=== PATIENT | male | born 1970 | race Caucasian/White ===

== ENCOUNTER 2019-11-30 20:28 | Inpatient (IN) ==
[2019-11-30] MEDS ORDERED: FUROSEMIDE 40 MG/4 ML VIAL IV STA (20:42)
[2019-11-30] MEDS ORDERED: FUROSEMIDE 100 MG/10 ML VIAL ONE (20:43)
[2019-11-30 20:44] LABS: ABG Base Excess -2.1 MMOL/L (-2.5-2.5); ABG HCO3 22.6 MMOL/L (20-26); ABG PCO2 29.9 MM HG (35-48); ABG PH 7.444 (7.35-7.45); ABG PO2 83.8 MM HG (80-95); ABG TCO2 16.9 MMOL/L (23-27)
[2019-11-30 20:49] LABS: Basophils # 0.2 10*3/uL (0.0-0.2); Basophils % 0.7 % (0.0-0.8); Eosinophils # 0.7 10*3/uL (0.0-0.87); Eosinophils % 2.9 % (0.00-10.9); Hematocrit 49.8 VOL% (42.0-52.0); Hemoglobin 16.8 GM/DL (14.0-18.0); Immature Granulocytes % 0.4 %; Lymphocytes # 9.9 10*3/uL (1.4-4.0); Lymphocytes % 40.5 % (21.2-54.2); Mean Corpuscular HGB Conc 33.7 GM/DL (32-36); Mean Corpuscular Volume 84.3 FL (87-102); Mean Platelet Volume 10.9 FL (9.6-12.0); Neutrophils % 49.5 % (38.7-73.9); Platelet Count 408 T/CUMM (130-400); Red Blood Count 5.91 MC/CUMM (3.8-5.5); Red Cell Distribution Width 13.6 % (9.3-17.3); White Blood Count 24.3 T/CUMM (4-12)
[2019-11-30 21:00] LABS: PT Patient Result 10.4 SECS (9.8-11.9)
[2019-11-30 21:03] LABS: Apearance,Urine CLEAR (Clear); Bacteria,Urine Occasional /HPF (Few); Bilirubin,Urine Negative (Negative); Blood, Urine Negative (Negative); Glucose,Urine (UA) Negative (Negative); Ketones,Urine Negative (Negative); Mucus,Urine Occasional /LPF (Occasional); Nitrite,Urine Negative (Negative); Protein,Urine 30 MG/DL; RBC,Urine 2 /HPF (0-4); Squamous Epithelial Cell,Urine Occasional /HPF (0-10); Urine Color Yellow (Yellow); Urine Specific Gravity 1.027 (1.001-1.035); Urine Urobilinogen < 2.0 EU/DL (0.2-1.0); WBC,Urine 1 /HPF (0-6)
[2019-11-30] MEDS ORDERED: ALBUTEROL/IPRATROPIUM 3 ML NEB RESP TX STA (21:08)
[2019-11-30 21:09] LABS: Barbiturates Screen,Urine Negative (Negative); Benzodiazepines Screen,Urine Negative (Negative); Cannabinoid Screen,Urine Negative (Negative); Opiate Screen,Urine Negative (Negative); Phencyclidine Screen,Urine Negative (Negative)
[2019-11-30 21:11] LABS: Band Neutrophils 1 % (0-10); Eosinophils 3 % (0-10); Lymphocytes 38 % (20-55); Segmented Neutrophils 49 % (50-85); Total Cells Counted 100
[2019-11-30 21:12] LABS: Platelet Estimate Adequate
[2019-11-30 21:13] LABS: Albumin 4.2 G/DL (3.4-5.0); Bilirubin,Total 0.5 MG/DL (0.2-1.0); Calcium 9.4 MG/DL (8.5-10.1); Total Protein 8.2 G/DL (6.4-8.3)
[2019-11-30 21:18] LABS: ABG Base Excess -6.5 MMOL/L (-2.5-2.5); ABG Oxygen Saturation 85.2 % (95-100); ABG PCO2 54.7 MM HG (35-48); ABG PH 7.222 (7.35-7.45); ABG PO2 59.3 MM HG (80-95); ABG TCO2 23.7 MMOL/L (23-27)
[2019-11-30] MEDS ORDERED: ROCURONIUM 100 MG/10 ML VIAL IV STA (21:24)
[2019-11-30] MEDS ORDERED: ETOMIDATE 20 MG/10 ML VIAL IV STA (21:24)
[2019-11-30 21:43] LABS: ABG Base Excess -12.7 MMOL/L (-2.5-2.5); ABG HCO3 14.9 MMOL/L (20-26); ABG Oxygen Saturation 94.9 % (95-100); ABG PCO2 65.7 MM HG (35-48); ABG TCO2 17.8 MMOL/L (23-27)
[2019-11-30] MEDS ORDERED: cefTRIAXone 1,000 MG in SODIUM CHLORIDE 0.9% 100 ML IV STA (21:47)
[2019-11-30] MEDS ORDERED: LEVOFLOXACIN INJ 500 MG in PREMIX 1 EACH IV STA (21:47)
[2019-11-30] MEDS ORDERED: PROMETHAZINE 25 MG/1 ML VIAL IM PRN (21:57)
[2019-11-30] MEDS ORDERED: ALBUTEROL 2.5 MG/3 ML NEB RESP TX PRN (21:57)
[2019-11-30] MEDS ORDERED: SODIUM BICARBONATE 50 MEQ/50 ML VIAL IV STA (22:09)
[2019-11-30] MEDS ORDERED: LORazepam 2 MG/1 ML VIAL ONE (23:09)
[2019-11-30 23:18] LABS: ABG Base Excess -4.9 MMOL/L (-2.5-2.5); ABG HCO3 20.5 MMOL/L (20-26); ABG PCO2 49.4 MM HG (35-48); ABG PH 7.274 (7.35-7.45); ABG TCO2 19.3 MMOL/L (23-27)
[2019-11-30] MEDS ORDERED: ATROPINE 1 MG/10 ML SYRINGE IV ONE (23:38)
[2019-11-30 23:51] LABS: Troponin I 0.018 NG/ML (0.00-0.045)
[2019-12-01] MEDS ORDERED: LORazepam 2 MG/1 ML VIAL IV STA (00:06)
[2019-12-01] MEDS ORDERED: LORazepam 2 MG/1 ML VIAL ONE (00:08)
[2019-12-01] MEDS ORDERED: FOSPHENYTOIN 1,000 MG.PE in SODIUM CHLORIDE 0.9% 250 ML IV ONE (00:30)
[2019-12-01] MEDS ORDERED: POTASSIUM CHLORIDE INJ 80 MEQ in SODIUM CHLORIDE 0.9% 1,000 ML IV SCH (00:30)
[2019-12-01] MEDS ORDERED: LACTATED RINGERS 1,000 ML IV SCH (00:30)
[2019-12-01] MEDS ORDERED: POTASSIUM CHLORIDE RIDER 20 MEQ in PREMIX 1 EACH IV SCH (00:30)
[2019-12-01] MEDS: LORazepam INJ 40 MG in DEXTROSE 5% 30 ML IV PRN ×4 (00:52→21:57)
[2019-12-01] MEDS ORDERED: LACTATED RINGERS 1,000 ML IV ONE ×2 (01:32→03:27)
[2019-12-01 01:48] LABS: ABG PCO2 43.7 MM HG (35-48)
[2019-12-01 01:49] LABS: ABG Base Excess -0.3 MMOL/L (-2.5-2.5); ABG HCO3 24.2 MMOL/L (20-26); ABG Oxygen Saturation 99.4 % (95-100); ABG TCO2 21.1 MMOL/L (23-27)
[2019-12-01 04:17] LABS: ABG Base Excess 1.9 MMOL/L (-2.5-2.5); ABG HCO3 26.1 MMOL/L (20-26); ABG Oxygen Saturation 99.7 % (95-100); ABG PCO2 32.9 MM HG (35-48); ABG PH 7.481 (7.35-7.45); ABG TCO2 20.5 MMOL/L (23-27)
[2019-12-01 06:22] LABS: Albumin 3.3 G/DL (3.4-5.0); Bilirubin,Total 0.5 MG/DL (0.2-1.0); Calcium 8.6 MG/DL (8.5-10.1); Osmolality,Calculated 293.8 MOS/KG (273-304); Total Protein 7.2 G/DL (6.4-8.3)
[2019-12-01] MEDS: MAGNESIUM SULF RIDER 4 GM in PREMIX 1 EACH IV PRN (08:38)
[2019-12-01] MEDS ORDERED: ATROPINE 1 MG/10 ML SYRINGE ONE ×2 (08:58→22:34)
[2019-12-01] MEDS ORDERED: ATROPINE 1 MG/10 ML SYRINGE IV ONE ×2 (08:58→14:48)
[2019-12-01] MEDS: cefTRIAXone 1,000 MG in SYRINGE 1 EACH IV SCH (11:02)
[2019-12-01] MEDS: PANTOPRAZOLE 40 MG VIAL IV SCH (11:02)
[2019-12-01] MEDS: ENOXAPARIN 40 MG/0.4 ML SYRINGE SUBCUT SCH (12:21)
[2019-12-01 12:31] LABS: Basophils % 0.2 % (0.0-0.8); Eosinophils % 0.1 % (0.00-10.9); Hematocrit 46.4 VOL% (42.0-52.0); Hemoglobin 15.6 GM/DL (14.0-18.0); Immature Granulocytes % 0.3 %; Immature Granulocytes Absolute 0.05 #; Lymphocytes % 5.2 % (21.2-54.2); Mean Corpuscular HGB Conc 33.6 GM/DL (32-36); Mean Corpuscular Volume 83.5 FL (87-102); Mean Platelet Volume 10.5 FL (9.6-12.0); Monocytes % 5.5 % (1.7-12.7); Neutrophils % 88.7 % (38.7-73.9); Platelet Count 269 T/CUMM (130-400); Red Blood Count 5.56 MC/CUMM (3.8-5.5); Red Cell Distribution Width 13.7 % (9.3-17.3); White Blood Count 19.9 T/CUMM (4-12)
[2019-12-01 17:19] LABS: Calcium 8.3 MG/DL (8.5-10.1); Osmolality,Calculated 298.4 MOS/KG (273-304)
[2019-12-01] MEDS: MAGNESIUM SULF RIDER 2 GM in PREMIX 1 EACH IV PRN (18:29)
[2019-12-01] MEDS ORDERED: LEVOFLOXACIN INJ 500 MG in PREMIX 1 EACH IV SCH (21:00)
[2019-12-01] MEDS: ATROPINE 1 MG/10 ML SYRINGE IV PRN (22:42)
[2019-12-02] MEDS: LORazepam INJ 40 MG in DEXTROSE 5% 30 ML IV PRN ×4 (00:17→14:55)
[2019-12-02] MEDS: ATROPINE 1 MG/10 ML SYRINGE IV PRN ×3 (02:33→09:12)
[2019-12-02] MEDS ORDERED: ATROPINE 1 MG/10 ML SYRINGE ONE ×2 (02:36→06:55)
[2019-12-02 04:43] LABS: Allen Test Positive; Pt O2 Delivery Device Ventilator
[2019-12-02 04:44] LABS: ABG Base Excess 2.6 MMOL/L (-2.5-2.5); ABG HCO3 26.8 MMOL/L (20-26); ABG Oxygen Saturation 99.2 % (95-100); ABG PCO2 39.3 MM HG (35-48); ABG PH 7.442 (7.35-7.45); ABG TCO2 22.9 MMOL/L (23-27)
[2019-12-02 04:45] LABS: Basophils % 0.2 % (0.0-0.8); Eosinophils % 0.2 % (0.00-10.9); Hematocrit 42.6 VOL% (42.0-52.0); Hemoglobin 14.2 GM/DL (14.0-18.0); Immature Granulocytes % 0.4 %; Immature Granulocytes Absolute 0.08 #; Lymphocytes # 1.4 10*3/uL (1.4-4.0); Lymphocytes % 7.6 % (21.2-54.2); Mean Corpuscular HGB Conc 33.3 GM/DL (32-36); Mean Corpuscular Volume 86.1 FL (87-102); Mean Platelet Volume 10.7 FL (9.6-12.0); Monocytes % 5.8 % (1.7-12.7); Neutrophils % 85.8 % (38.7-73.9); Platelet Count 230 T/CUMM (130-400); Red Blood Count 4.95 MC/CUMM (3.8-5.5); Red Cell Distribution Width 14.2 % (9.3-17.3); White Blood Count 18.1 T/CUMM (4-12)
[2019-12-02 05:07] LABS: Bilirubin,Total 0.6 MG/DL (0.2-1.0); Calcium 7.9 MG/DL (8.5-10.1); Osmolality,Calculated 300.3 MOS/KG (273-304); Total Protein 6.2 G/DL (6.4-8.3)
[2019-12-02 05:20] LABS: Hypochromasia Slight; Platelet Estimate Adequate
[2019-12-02] MEDS: PANTOPRAZOLE 40 MG VIAL IV SCH (09:25)
[2019-12-02] MEDS: cefTRIAXone 1,000 MG in SYRINGE 1 EACH IV SCH (09:25)
[2019-12-02] MEDS: ENOXAPARIN 40 MG/0.4 ML SYRINGE SUBCUT SCH (09:25)
[2019-12-02] MEDS: POTASSIUM CHLORIDE RIDER 20 MEQ in PREMIX 1 EACH IV PRN (09:26)
[2019-12-02] MEDS: POTASSIUM CHLORIDE RIDER 10 MEQ in PREMIX 1 EACH IV PRN (11:33)
[2019-12-02] MEDS: SODIUM CHLORIDE 0.9% IV SCH ×2 (11:47→15:23)
[2019-12-02] MEDS: ATROPINE IV PRN (11:47)
[2019-12-02] MEDS: SODIUM CHLORIDE 0.9% IV PRN (11:47)
[2019-12-02] MEDS: [UNRECOGNIZED DRUG - OTHER] IV SCH ×2 (11:47→15:23)
[2019-12-02] MEDS ORDERED: POTASSIUM CHLORIDE 20 MEQ/15 ML UDCUP PER TUBE ONE (12:00)
[2019-12-02] MEDS: DEXTROSE 5% NACL 0.45% 1,000 ML IV SCH (12:51)
[2019-12-02] MEDS ORDERED: LIDOCAINE 1% 20 ML VIAL ONE (13:18)
[2019-12-02] MEDS: VANCOMYCIN INJ 2,000 MG in SODIUM CHLORIDE 0.9% 500 ML IV SCH (15:38)
[2019-12-02] MEDS ORDERED: [UNRECOGNIZED DRUG - OTHER] IV SCH (16:00)
[2019-12-02] MEDS ORDERED: SODIUM CHLORIDE 0.9% IV SCH (16:00)
[2019-12-03] MEDS: DEXTROSE 5% NACL 0.45% 1,000 ML IV SCH ×2 (03:42→14:55)
[2019-12-03 04:51] LABS: ABG Base Excess 2.9 MMOL/L (-2.5-2.5); ABG Oxygen Saturation 99.3 % (95-100); ABG PCO2 41.8 MM HG (35-48); ABG PH 7.428 (7.35-7.45); Allen Test Positive; Pt O2 Delivery Device Ventilator
[2019-12-03] MEDS: VANCOMYCIN INJ 2,000 MG in SODIUM CHLORIDE 0.9% 500 ML IV SCH ×2 (05:22→14:40)
[2019-12-03 05:24] LABS: Basophils # 0.1 10*3/uL (0.0-0.2); Basophils % 0.3 % (0.0-0.8); Eosinophils # 0.1 10*3/uL (0.0-0.87); Eosinophils % 0.5 % (0.00-10.9); Hematocrit 38.3 VOL% (42.0-52.0); Hemoglobin 12.8 GM/DL (14.0-18.0); Immature Granulocytes % 0.3 %; Immature Granulocytes Absolute 0.04 #; Lymphocytes # 2.1 10*3/uL (1.4-4.0); Lymphocytes % 13.8 % (21.2-54.2); Mean Corpuscular HGB Conc 33.4 GM/DL (32-36); Mean Corpuscular Volume 86.3 FL (87-102); Mean Platelet Volume 10.2 FL (9.6-12.0); Monocytes % 7.4 % (1.7-12.7); Neutrophils % 77.7 % (38.7-73.9); Platelet Count 202 T/CUMM (130-400); Red Blood Count 4.44 MC/CUMM (3.8-5.5); Red Cell Distribution Width 14.4 % (9.3-17.3); White Blood Count 15.5 T/CUMM (4-12)
[2019-12-03 06:04] LABS: Albumin 2.5 G/DL (3.4-5.0); Calcium 7.9 MG/DL (8.5-10.1); Osmolality,Calculated 296.3 MOS/KG (273-304); Total Protein 6.1 G/DL (6.4-8.3)
[2019-12-03] MEDS: POTASSIUM CHLORIDE RIDER 20 MEQ in PREMIX 1 EACH IV PRN (07:10)
[2019-12-03] MEDS: cefTRIAXone 1,000 MG in SYRINGE 1 EACH IV SCH (08:05)
[2019-12-03] MEDS: MAGNESIUM SULF RIDER 2 GM in PREMIX 1 EACH IV PRN (08:05)
[2019-12-03] MEDS: ENOXAPARIN 40 MG/0.4 ML SYRINGE SUBCUT SCH (08:05)
[2019-12-03] MEDS: PANTOPRAZOLE 40 MG VIAL IV SCH (08:10)
[2019-12-03] MEDS ORDERED: DEXTROSE 10% 250 ML BAG IV PRN (13:28)
[2019-12-03] MEDS ORDERED: GLUCAGON 1 MG VIAL IM PRN (13:28)
[2019-12-03] MEDS: ATROPINE IV PRN (15:02)
[2019-12-03] MEDS: SODIUM CHLORIDE 0.9% IV PRN (15:02)
[2019-12-03] MEDS: INSULIN REGULAR 100 UNIT/ML SUBCUT SCH ×2 (18:25→23:50)
[2019-12-03] MEDS: ACETAMINOPHEN 325 MG/10.15 ML UDCUP PO PRN (22:47)
[2019-12-04 04:55] LABS: ABG Base Excess 1.5 MMOL/L (-2.5-2.5); ABG HCO3 26.1 MMOL/L (20-26); ABG Oxygen Saturation 98.5 % (95-100); ABG PCO2 41.1 MM HG (35-48); ABG PO2 163.3 MM HG (80-95); ABG TCO2 27.3 MMOL/L (23-27)
[2019-12-04 04:56] LABS: Allen Test Positive; Pt O2 Delivery Device Ventilator
[2019-12-04] MEDS: DEXTROSE 5% NACL 0.45% 1,000 ML IV SCH ×2 (05:08→17:45)
[2019-12-04] MEDS: VANCOMYCIN INJ 2,000 MG in SODIUM CHLORIDE 0.9% 500 ML IV SCH (05:14)
[2019-12-04] MEDS: INSULIN REGULAR 100 UNIT/ML SUBCUT SCH ×3 (05:24→18:28)
[2019-12-04 05:42] LABS: Albumin 2.4 G/DL (3.4-5.0); Calcium 8.1 MG/DL (8.5-10.1); Osmolality,Calculated 290.7 MOS/KG (273-304)
[2019-12-04 05:43] LABS: Prealbumin 10.9 MG/DL (20-40)
[2019-12-04 06:00] LABS: Basophils # 0.1 10*3/uL (0.0-0.2); Basophils % 0.5 % (0.0-0.8); Eosinophils # 0.4 10*3/uL (0.0-0.87); Hematocrit 37.4 VOL% (42.0-52.0); Hemoglobin 12.3 GM/DL (14.0-18.0); Immature Granulocytes % 0.4 %; Immature Granulocytes Absolute 0.06 #; Lymphocytes # 2.3 10*3/uL (1.4-4.0); Lymphocytes % 17.1 % (21.2-54.2); Mean Corpuscular HGB Conc 32.9 GM/DL (32-36); Mean Corpuscular Volume 86.8 FL (87-102); Mean Platelet Volume 10.8 FL (9.6-12.0); Monocytes % 8.3 % (1.7-12.7); Neutrophils % 70.7 % (38.7-73.9); Platelet Count 188 T/CUMM (130-400); Red Blood Count 4.31 MC/CUMM (3.8-5.5); Red Cell Distribution Width 14.1 % (9.3-17.3); White Blood Count 13.5 T/CUMM (4-12)
[2019-12-04] MEDS: PANTOPRAZOLE 40 MG VIAL IV SCH (08:35)
[2019-12-04] MEDS: ENOXAPARIN 40 MG/0.4 ML SYRINGE SUBCUT SCH (08:35)
[2019-12-04] MEDS: POTASSIUM CHLORIDE RIDER 20 MEQ in PREMIX 1 EACH IV PRN ×2 (08:35→15:40)
[2019-12-04] MEDS: cefTRIAXone 1,000 MG in SYRINGE 1 EACH IV SCH (08:40)
[2019-12-04] MEDS: ceFAZolin 2,000 MG in PREMIX 1 EACH IV SCH ×2 (11:30→18:05)
[2019-12-04] MEDS: LORazepam 2 MG/1 ML VIAL IV PRN ×2 (14:35→20:46)
[2019-12-04 15:32] LABS: Calcium 8.3 MG/DL (8.5-10.1); Osmolality,Calculated 289.7 MOS/KG (273-304)
[2019-12-04] MEDS: MAGNESIUM SULF RIDER 2 GM in PREMIX 1 EACH IV PRN (15:40)
[2019-12-04] MEDS: ACETAMINOPHEN 325 MG/10.15 ML UDCUP PO PRN (15:45)
[2019-12-04] MEDS: ASPIRIN CHEW 81 MG TABLET PO SCH (18:10)
[2019-12-04] MEDS: ASCORBIC ACID 500 MG TABLET NG SCH (20:45)
[2019-12-05] MEDS: INSULIN REGULAR 100 UNIT/ML SUBCUT SCH ×4 (00:20→18:34)
[2019-12-05] MEDS: ceFAZolin 2,000 MG in PREMIX 1 EACH IV SCH ×3 (02:51→18:49)
[2019-12-05 04:22] LABS: ABG HCO3 26.1 MMOL/L (20-26); ABG Oxygen Saturation 98.2 % (95-100); ABG PCO2 39.1 MM HG (35-48); ABG PH 7.434 (7.35-7.45); ABG TCO2 22.9 MMOL/L (23-27); Allen Test Positive; Pt O2 Delivery Device Ventilator
[2019-12-05 05:38] LABS: Basophils % 0.3 % (0.0-0.8); Eosinophils # 0.6 10*3/uL (0.0-0.87); Eosinophils % 4.7 % (0.00-10.9); Hematocrit 38.5 VOL% (42.0-52.0); Immature Granulocytes % 0.4 %; Immature Granulocytes Absolute 0.05 #; Lymphocytes # 1.9 10*3/uL (1.4-4.0); Lymphocytes % 16.1 % (21.2-54.2); Mean Corpuscular HGB Conc 33.8 GM/DL (32-36); Mean Corpuscular Volume 85.6 FL (87-102); Mean Platelet Volume 10.8 FL (9.6-12.0); Monocytes % 8.3 % (1.7-12.7); Neutrophils % 70.2 % (38.7-73.9); Platelet Count 193 T/CUMM (130-400); Red Cell Distribution Width 13.7 % (9.3-17.3); White Blood Count 11.8 T/CUMM (4-12)
[2019-12-05 06:06] LABS: Calcium 8.3 MG/DL (8.5-10.1); Osmolality,Calculated 288.8 MOS/KG (273-304)
[2019-12-05 06:13] LABS: Albumin 2.2 G/DL (3.4-5.0); Bilirubin,Total 1.4 MG/DL (0.2-1.0); Calcium 8.5 MG/DL (8.5-10.1); Osmolality,Calculated 288.8 MOS/KG (273-304); Total Protein 6.9 G/DL (6.4-8.3)
[2019-12-05] MEDS: POTASSIUM CHLORIDE RIDER 20 MEQ in PREMIX 1 EACH IV PRN ×2 (06:17→07:17)
[2019-12-05] MEDS: MAGNESIUM SULF RIDER 2 GM in PREMIX 1 EACH IV PRN (06:17)
[2019-12-05] MEDS: DEXTROSE 5% NACL 0.45% 1,000 ML IV SCH ×2 (07:09→20:55)
[2019-12-05] MEDS: ASCORBIC ACID 500 MG TABLET NG SCH ×2 (09:16→20:56)
[2019-12-05] MEDS: ASPIRIN CHEW 81 MG TABLET PO SCH (09:16)
[2019-12-05] MEDS: ENOXAPARIN 40 MG/0.4 ML SYRINGE SUBCUT SCH (09:17)
[2019-12-05] MEDS: PANTOPRAZOLE 40 MG VIAL IV SCH (09:17)
[2019-12-05] MEDS ORDERED: LORazepam 2 MG/1 ML VIAL IV ONE (11:25)
[2019-12-05] MEDS ORDERED: POTASSIUM CHLORIDE 20 MEQ/15 ML UDCUP PER TUBE ONE (11:30)
[2019-12-05] MEDS: amLODIPine 5 MG TABLET PO SCH (15:18)
[2019-12-05] MEDS ORDERED: ONDANSETRON 4 MG/2 ML VIAL IV ONE (17:55)
[2019-12-06] MEDS: INSULIN REGULAR 100 UNIT/ML SUBCUT SCH ×4 (00:12→20:56)
[2019-12-06] MEDS: ONDANSETRON 4 MG/2 ML VIAL IV PRN ×2 (03:06→07:23)
[2019-12-06] MEDS: ceFAZolin 2,000 MG in PREMIX 1 EACH IV SCH ×3 (03:31→20:56)
[2019-12-06 04:43] LABS: Basophils % 0.3 % (0.0-0.8); Eosinophils # 0.5 10*3/uL (0.0-0.87); Eosinophils % 3.8 % (0.00-10.9); Hematocrit 39.4 VOL% (42.0-52.0); Hemoglobin 13.3 GM/DL (14.0-18.0); Immature Granulocytes % 0.3 %; Immature Granulocytes Absolute 0.04 #; Lymphocytes # 1.3 10*3/uL (1.4-4.0); Lymphocytes % 10.5 % (21.2-54.2); Mean Corpuscular HGB Conc 33.8 GM/DL (32-36); Mean Corpuscular Volume 84.5 FL (87-102); Mean Platelet Volume 10.8 FL (9.6-12.0); Monocytes % 10.3 % (1.7-12.7); Neutrophils % 74.8 % (38.7-73.9); Platelet Count 211 T/CUMM (130-400); Red Blood Count 4.66 MC/CUMM (3.8-5.5); Red Cell Distribution Width 13.4 % (9.3-17.3); White Blood Count 12.2 T/CUMM (4-12)
[2019-12-06 05:12] LABS: Calcium 8.5 MG/DL (8.5-10.1); Osmolality,Calculated 290.8 MOS/KG (273-304)
[2019-12-06] MEDS: MAGNESIUM SULF RIDER 2 GM in PREMIX 1 EACH IV PRN (05:55)
[2019-12-06] MEDS: POTASSIUM CHLORIDE RIDER 20 MEQ in PREMIX 1 EACH IV PRN (05:55)
[2019-12-06] MEDS: POTASSIUM CHLORIDE RIDER 10 MEQ in PREMIX 1 EACH IV PRN (06:21)
[2019-12-06] MEDS: ACETAMINOPHEN 325 MG/10.15 ML UDCUP PO PRN (07:22)
[2019-12-06] MEDS: ASPIRIN CHEW 81 MG TABLET PO SCH (08:08)
[2019-12-06] MEDS: amLODIPine 5 MG TABLET PO SCH (08:08)
[2019-12-06] MEDS: ENOXAPARIN 40 MG/0.4 ML SYRINGE SUBCUT SCH (08:08)
[2019-12-06] MEDS: ASCORBIC ACID 500 MG TABLET NG SCH ×2 (08:12→20:55)
[2019-12-06] MEDS: PANTOPRAZOLE 40 MG VIAL IV SCH (08:24)
[2019-12-06] MEDS: DEXTROSE 5% NACL 0.45% 1,000 ML IV SCH ×2 (10:25→23:45)
[2019-12-06] MEDS ORDERED: COLCHICINE 0.6 MG CAPSULE PO ONE ×2 (15:46→16:46)
[2019-12-06] MEDS ORDERED: IBUPROFEN 600 MG TABLET PO PRN (15:49)
[2019-12-06] MEDS ORDERED: allopurinoL 100 MG TABLET PO SCH (21:00)
[2019-12-07] MEDS: INSULIN REGULAR 100 UNIT/ML SUBCUT SCH ×4 (00:20→18:14)
[2019-12-07] MEDS: ceFAZolin 2,000 MG in PREMIX 1 EACH IV SCH ×3 (05:24→21:33)
[2019-12-07 06:43] LABS: Calcium 8.6 MG/DL (8.5-10.1); Osmolality,Calculated 280.4 MOS/KG (273-304)
[2019-12-07 06:59] LABS: Basophils % 0.2 % (0.0-0.8); Eosinophils # 0.6 10*3/uL (0.0-0.87); Eosinophils % 4.4 % (0.00-10.9); Hematocrit 40.3 VOL% (42.0-52.0); Hemoglobin 13.2 GM/DL (14.0-18.0); Immature Granulocytes % 0.5 %; Immature Granulocytes Absolute 0.06 #; Lymphocytes # 1.8 10*3/uL (1.4-4.0); Lymphocytes % 13.6 % (21.2-54.2); Mean Corpuscular HGB Conc 32.8 GM/DL (32-36); Mean Corpuscular Volume 85.6 FL (87-102); Mean Platelet Volume 11.2 FL (9.6-12.0); Monocytes % 10.9 % (1.7-12.7); Neutrophils % 70.4 % (38.7-73.9); Platelet Count 233 T/CUMM (130-400); Red Blood Count 4.71 MC/CUMM (3.8-5.5); Red Cell Distribution Width 13.2 % (9.3-17.3)
[2019-12-07] MEDS: amLODIPine 5 MG TABLET PO SCH (09:08)
[2019-12-07] MEDS: ASCORBIC ACID 500 MG TABLET NG SCH ×2 (09:08→21:33)
[2019-12-07] MEDS: ASPIRIN CHEW 81 MG TABLET PO SCH (09:08)
[2019-12-07] MEDS: ENOXAPARIN 40 MG/0.4 ML SYRINGE SUBCUT SCH (09:10)
[2019-12-07] MEDS: allopurinoL 100 MG TABLET PO SCH (09:25)
[2019-12-07] MEDS: POTASSIUM CHLORIDE 20 MEQ TABLET PO SCH ×2 (09:25→21:33)
[2019-12-07] MEDS: PANTOPRAZOLE 40 MG VIAL IV SCH (09:27)
[2019-12-07] MEDS: MAGNESIUM SULF RIDER 2 GM in PREMIX 1 EACH IV SCH ×2 (09:32→16:02)
[2019-12-07] MEDS: PANTOPRAZOLE 40 MG TABLET PO SCH (14:24)
[2019-12-07] MEDS ORDERED: FAMOTIDINE 20 MG/2 ML VIAL IV ONE (17:50)
[2019-12-08] MEDS: INSULIN REGULAR 100 UNIT/ML SUBCUT SCH ×2 (01:23→05:42)
[2019-12-08] MEDS ORDERED: ACETAMINOPHEN 325 MG TABLET PO PRN (03:32)
[2019-12-08] MEDS: ceFAZolin 2,000 MG in PREMIX 1 EACH IV SCH ×3 (05:43→21:21)
[2019-12-08 05:57] LABS: Basophils # 0.1 10*3/uL (0.0-0.2); Basophils % 0.4 % (0.0-0.8); Eosinophils # 0.5 10*3/uL (0.0-0.87); Eosinophils % 3.6 % (0.00-10.9); Hematocrit 40.1 VOL% (42.0-52.0); Hemoglobin 13.2 GM/DL (14.0-18.0); Immature Granulocytes % 0.6 %; Immature Granulocytes Absolute 0.07 #; Lymphocytes % 15.9 % (21.2-54.2); Mean Corpuscular HGB Conc 32.9 GM/DL (32-36); Mean Corpuscular Volume 86.8 FL (87-102); Mean Platelet Volume 11.4 FL (9.6-12.0); Neutrophils % 68.5 % (38.7-73.9); Platelet Count 263 T/CUMM (130-400); Red Blood Count 4.62 MC/CUMM (3.8-5.5); Red Cell Distribution Width 13.2 % (9.3-17.3); White Blood Count 12.6 T/CUMM (4-12)
[2019-12-08 06:04] LABS: Calcium 8.4 MG/DL (8.5-10.1); Osmolality,Calculated 275.7 MOS/KG (273-304)
[2019-12-08] MEDS: PANTOPRAZOLE 40 MG TABLET PO SCH (09:34)
[2019-12-08] MEDS: ASCORBIC ACID 500 MG TABLET NG SCH ×2 (09:34→21:21)
[2019-12-08] MEDS: ASPIRIN CHEW 81 MG TABLET PO SCH (09:34)
[2019-12-08] MEDS: amLODIPine 5 MG TABLET PO SCH (09:35)
[2019-12-08] MEDS: allopurinoL 100 MG TABLET PO SCH (09:35)
[2019-12-08] MEDS: ENOXAPARIN 40 MG/0.4 ML SYRINGE SUBCUT SCH (09:35)
[2019-12-08] MEDS: POTASSIUM CHLORIDE RIDER 10 MEQ in PREMIX 1 EACH IV PRN ×2 (09:36→10:39)
[2019-12-08] MEDS: MAGNESIUM SULF RIDER 2 GM in PREMIX 1 EACH IV PRN (09:36)
[2019-12-08] MEDS ORDERED: IBUPROFEN 800 MG TABLET PO PRN (09:50)
[2019-12-08] MEDS ORDERED: KETOROLAC 30 MG/1 ML VIAL IV ONE (09:50)
[2019-12-08] MEDS ORDERED: COLCHICINE 0.6 MG CAPSULE PO ONE ×2 (09:52→16:00)
[2019-12-08] MEDS: IBUPROFEN 600 MG TABLET PO PRN (10:21)
[2019-12-08] MEDS: CYCLOBENZAPRINE 10 MG TABLET PO SCH ×2 (16:25→21:21)
[2019-12-09] MEDS: ceFAZolin 2,000 MG in PREMIX 1 EACH IV SCH ×4 (05:45→21:54)
[2019-12-09] MEDS: ONDANSETRON 4 MG/2 ML VIAL IV PRN (05:49)
[2019-12-09] MEDS: IBUPROFEN 600 MG TABLET PO PRN (07:25)
[2019-12-09] MEDS ORDERED: METOPROLOL TARTRATE 5 MG/5 ML VIAL IV ONE (08:50)
[2019-12-09] MEDS ORDERED: ENOXAPARIN 100 MG/ML SYRINGE SUBCUT ONE (08:51)
[2019-12-09] MEDS ORDERED: MELATONIN 3 MG TABLET PO PRN (08:53)
[2019-12-09] MEDS ORDERED: COLCHICINE 0.6 MG CAPSULE PO SCH (09:00)
[2019-12-09] MEDS ORDERED: METOPROLOL TARTRATE 25 MG TABLET PO SCH (09:00)
[2019-12-09] MEDS: ASPIRIN CHEW 81 MG TABLET PO SCH (09:19)
[2019-12-09] MEDS: ASCORBIC ACID 500 MG TABLET NG SCH ×2 (09:20→21:55)
[2019-12-09] MEDS: CYCLOBENZAPRINE 10 MG TABLET PO SCH ×3 (09:21→21:55)
[2019-12-09] MEDS: amLODIPine 5 MG TABLET PO SCH (09:21)
[2019-12-09] MEDS: APIXABAN 5 MG TABLET PO SCH ×2 (09:21→21:55)
[2019-12-09] MEDS: PANTOPRAZOLE 40 MG TABLET PO SCH (09:21)
[2019-12-09] MEDS: allopurinoL 100 MG TABLET PO SCH (09:22)
[2019-12-09 09:30] LABS: Calcium 8.2 MG/DL (8.5-10.1); Osmolality,Calculated 281.4 MOS/KG (273-304)
[2019-12-09] MEDS: IBUPROFEN 600 MG TABLET PO SCH ×3 (10:37→21:55)
[2019-12-09] MEDS ORDERED: POTASSIUM CHLORIDE 20 MEQ TABLET PO PRN (10:44)
[2019-12-09] MEDS: MAGNESIUM SULF RIDER 4 GM in PREMIX 1 EACH IV PRN (11:23)
[2019-12-09] MEDS ORDERED: METOPROLOL SUCCINATE XL 25 MG TABLET PO ONE (12:37)
[2019-12-09] MEDS ORDERED: ALUMINUM/MAGNES/SIMETH MAX STR 30 ML UDCUP PO PRN (13:30)
[2019-12-09] MEDS: carvediloL 6.25 MG TABLET PO SCH (21:55)
[2019-12-10 04:08] LABS: Basophils # 0.1 10*3/uL (0.0-0.2); Basophils % 0.5 % (0.0-0.8); Eosinophils # 0.6 10*3/uL (0.0-0.87); Eosinophils % 5.2 % (0.00-10.9); Hemoglobin 13.7 GM/DL (14.0-18.0); Immature Granulocytes % 0.6 %; Immature Granulocytes Absolute 0.07 #; Lymphocytes # 2.9 10*3/uL (1.4-4.0); Lymphocytes % 24.2 % (21.2-54.2); Mean Corpuscular HGB Conc 33.4 GM/DL (32-36); Mean Corpuscular Volume 84.7 FL (87-102); Mean Platelet Volume 10.7 FL (9.6-12.0); Monocytes % 9.1 % (1.7-12.7); Neutrophils % 60.4 % (38.7-73.9); Platelet Count 301 T/CUMM (130-400); Red Blood Count 4.84 MC/CUMM (3.8-5.5); Red Cell Distribution Width 13.4 % (9.3-17.3); White Blood Count 12.1 T/CUMM (4-12)
[2019-12-10 04:34] LABS: Albumin 2.3 G/DL (3.4-5.0); Calcium 7.9 MG/DL (8.5-10.1); Osmolality,Calculated 281.4 MOS/KG (273-304)
[2019-12-10 04:35] LABS: Calcium 8.2 MG/DL (8.5-10.1); Osmolality,Calculated 282.3 MOS/KG (273-304)
[2019-12-10] MEDS: IBUPROFEN 600 MG TABLET PO SCH ×3 (04:35→16:41)
[2019-12-10] MEDS: ceFAZolin 2,000 MG in PREMIX 1 EACH IV SCH ×2 (04:35→14:36)
[2019-12-10] MEDS ORDERED: LIDOCAINE 2% 5 ML VIAL ONE (09:36)
[2019-12-10] MEDS ORDERED: ETOMIDATE 20 MG/10 ML VIAL IV ONE (09:36)
[2019-12-10] MEDS ORDERED: propofoL 200 MG/20 ML VIAL IV ONE (09:36)
[2019-12-10] MEDS: allopurinoL 100 MG TABLET PO SCH (10:39)
[2019-12-10] MEDS: ASCORBIC ACID 500 MG TABLET NG SCH (10:39)
[2019-12-10] MEDS: APIXABAN 5 MG TABLET PO SCH (10:40)
[2019-12-10] MEDS: carvediloL 6.25 MG TABLET PO SCH (10:40)
[2019-12-10] MEDS: ASPIRIN CHEW 81 MG TABLET PO SCH (10:41)
[2019-12-10] MEDS: CYCLOBENZAPRINE 10 MG TABLET PO SCH ×2 (10:41→14:51)
[2019-12-10] MEDS: PANTOPRAZOLE 40 MG TABLET PO SCH (10:41)
[2019-12-10] MEDS: amLODIPine 5 MG TABLET PO SCH (10:41)
[2019-12-10 16:29] VITALS: BP 123/73
[2019-12-10] MEDS ORDERED: VANCOMYCIN INJ 2,000 MG in SODIUM CHLORIDE 0.9% 500 ML IV SCH (17:00)
== END 2019-12-10 20:03 | disposition home or self-care (01) | DRG 870 ==
LOC: EDBD → EDUNIT# → N.ED 20:28 → SUATTDRO 21:56 → N.EDINP 21:56 → N.CC 22:12 → N.ICU 12-01 14:00 → N.TELES 12-06 12:02
PROVIDERS: ADMIT Internal Medicine; ATTEND Internal Medicine Geriatric Medicine